=== PATIENT | female | born 1980 | race Two or more races ===

== ENCOUNTER 2018-09-26 00:58 | Emergency (ER) | payer OTHER ==
[~2018-09-26] VITALS: Ht 152.4 cm; Wt 104.3 kg
[2018-09-26] MEDS ORDERED: TYLENOL-CODEINE1 TA1 PO (01:32)
== END 2018-09-26 01:49 | disposition home or self-care (01) ==
LOC: ER 00:58
DX: K08.89 Other specified disorders of teeth and supporting structures (principal)